=== PATIENT | male | born 1995 | race Two or more races ===

== ENCOUNTER 2017-07-10 02:04 | Emergency (ER) | payer OTHER ==
[~2017-07-10] VITALS: Ht 170.2 cm; Wt 51.4 kg
[2017-07-10 02:07] VITALS: BP 140/90
[2017-07-10] MEDS ORDERED: LIDOCAINE 1%, 20ML ONE (02:50)
[2017-07-10] MEDS ORDERED: LIDOCAINE 1%, 20ML INFIL ONE (03:00)
== END 2017-07-10 04:52 | disposition home or self-care (01) ==
LOC: ED 04:42
DX: S01.111A Laceration without foreign body of right eyelid and periocular area, initial encounter (principal); W01.0XXA Fall on same level from slipping, tripping and stumbling without subsequent striking against object, initial encounter; Y93.01 Activity, walking, marching and hiking; Y99.8 Other external cause status; Y92.009 Unspecified place in unspecified non-institutional (private) residence as the place of occurrence of the external cause
CPT/HCPCS: 12052; 70450; 99284